=== PATIENT | female | born 1975 | race Two or more races ===

== ENCOUNTER 2025-09-08 17:53 | Emergency (ER) | payer MEDICAID, OTHER ==
[~2025-09-08] VITALS: Ht 162.6 cm; Wt 66.8 kg
[2025-09-08 17:55] VITALS: BP 128/66; PULSE 89; RESP 18; TEMP 98.5; O2SAT 99
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
== END 2025-09-08 19:42 | disposition home or self-care (01) ==
LOC: EDBD 17:53 → ER 17:53
DX: S13.4XXA Sprain of ligaments of cervical spine, initial encounter (principal); V89.2XXA Person injured in unspecified motor-vehicle accident, traffic, initial encounter; Y93.89 Activity, other specified; Y92.410 Unspecified street and highway as the place of occurrence of the external cause; Y99.8 Other external cause status
CPT/HCPCS: 72040